=== PATIENT | male | born 1970 | race Two or more races ===

== ENCOUNTER → 2017-02-18 | Outpatient (CLI) | payer BC ==
[~2017-02-18] MED LIST: ACYCLOVIR; IBUP-1222 PO; TRUVADA; VALA1000 PO; [UNRECOGNIZED DRUG - REMARK]
== END ==
LOC: STAR 07:49
PROVIDERS: ATTEND Orthopaedic Surgery
DX: Z02.9 Encounter for administrative examinations, unspecified (principal)

== ENCOUNTER 2017-02-24 12:38 | Day surgery (SDC) | payer BC ==
[2017-02-18 08:07] VITALS: BP 128/84
[~2017-02-24] VITALS: Ht 182.9 cm; Wt 104.9 kg
[~2017-02-24 12:38] MED LIST changes: +BUPIVACAINE/PF 0.5% ONE; +EPINEPHRINE 1 MG/ML, 1ML ONE; -IBUP-1222 PO; +LIDOCAINE/PF 1%, 30ML ONE
[2017-02-24] MEDS ORDERED: LIDOCAINE 1%, 2ML ONE (13:11)
[2017-02-24] MEDS ORDERED: IBUP-1222 PO (13:19)
[2017-02-24] MEDS ORDERED: LACTATED RINGERS 1,000 ML IV SCH (13:25)
[2017-02-24] MEDS ORDERED: LIDOCAINE 1%, 2ML SQ PRN (13:30)
[2017-02-24] MEDS ORDERED: FENTANYL PF 100 MCG/2ML ONE ×2 (13:50→15:27)
[2017-02-24] MEDS ORDERED: MIDAZOLAM 1 MG/ML, 2ML ONE (13:50)
[2017-02-24] MEDS ORDERED: PROPOFOL 10 MG/ML, 20ML ONE (13:52)
[2017-02-24] MEDS ORDERED: DEXAMETHASONE 4 MG/ML, 1ML ONE (13:52)
[2017-02-24] MEDS ORDERED: ONDANSETRON 2MG/ML, 2ML ONE (13:52)
[2017-02-24] MEDS ORDERED: CEFAZOLIN 1,000 MG ONE ×2 (13:52)
[2017-02-24] MEDS ORDERED: LABETALOL 5MG/ML, 20ML IV PRN ×2 (14:00→15:00)
[2017-02-24] MEDS ORDERED: ACETAMINOPHEN 325 MG TABLET PO PRN ×2 (14:00→15:00)
[2017-02-24] MEDS ORDERED: OXYcodone 5 MG/5 ML ORAL.SOL UDC PO PRN ×2 (14:00→15:00)
[2017-02-24] MEDS ORDERED: METOPROLOL 1 MG/ML, 5ML IV PRN (14:00)
[2017-02-24] MEDS ORDERED: HYDROmorphone 1 MG/ML, 1ML IV PRN ×2 (14:00→15:00)
[2017-02-24] MEDS ORDERED: ALBUTEROL SULFATE 2.5 MG/3 ML NPPB PRN ×2 (14:00→15:00)
[2017-02-24] MEDS ORDERED: hydrALAzine 20 MG/ML, 1ML IV PRN ×2 (14:00→15:00)
[2017-02-24] MEDS ORDERED: FENTANYL PF 100 MCG/2ML IV PRN ×2 (14:00→15:00)
[2017-02-24] MEDS ORDERED: MEPERIDINE/PF 25MG/0.5ML IVPush PRN ×2 (14:00→15:00)
[2017-02-24] MEDS ORDERED: ONDANSETRON 2MG/ML, 2ML IVPush PRN (14:00)
[2017-02-24] MEDS ORDERED: EPHEDRINE 50 MG/ML, 1ML IVPush PRN ×2 (14:00→15:00)
[2017-02-24] MEDS ORDERED: IBUPROFEN 600 MG TABLET PO SCH (14:30)
[2017-02-24] MEDS ORDERED: KETOROLAC 30 MG/1 ML ONE (14:32)
[2017-02-24] MEDS ORDERED: OXYcodone 5 MG/5 ML ORAL.SOL UDC ONE (14:59)
[2017-02-24] MEDS ORDERED: ACETAMINOPHEN 325 MG TABLET ONE (15:00)
[2017-02-24] MEDS ORDERED: HYDROcodone/APAP 7.5-325MG/15ML UDC PO PRN (15:00)
[2017-02-24] MEDS ORDERED: MIDAZOLAM 1 MG/ML, 2ML IV PRN (15:00)
[2017-02-24] MEDS ORDERED: ACETAMINOPHEN 650 MG/20.3 ML UDC ONE (15:00)
[2017-02-25] MEDS ORDERED: VALACYCLOVIR 500MG TABLET PO SCH (09:00)
== END 2017-02-24 17:10 ==
LOC: OUT 12:38
PROVIDERS: ATTEND Orthopaedic Surgery
DX: S83.232A Complex tear of medial meniscus, current injury, left knee, initial encounter (principal); M94.262 Chondromalacia, left knee; X58.XXXA Exposure to other specified factors, initial encounter; Y93.89 Activity, other specified; Y92.89 Other specified places as the place of occurrence of the external cause; Y99.8 Other external cause status
CPT/HCPCS: 29881; J0171; J0690; J1100; J1885; J2250; J2405; J2704; J3010; J3490